=== PATIENT | female | born 1970 | race Asian ===

== ENCOUNTER 2016-11-03 21:41 | Emergency (ER) | payer OTHER ==
[2016-11-03 21:58] VITALS: BP 120/78
[2016-11-03] MEDS ORDERED: predniSONE 20 MG Tab PO ONE (22:08)
--- NOTE | 2016-11-03 22:16 | EDM.PDOC ---
ED HPI Skin/Rash - General Chief Complaint: Skin Complaint Stated Complaint: ALLERGIC REACTION Time Seen by Provider: 11/03/16 22:05 Source: Reports: Patient History Limitations: Reports: No limitations - History of Present Illness INITIAL COMMENTS - FREE TEXT/NARRATIVE: Rosalino is in the area for her daughters wedding tomorrow, and has developed an erythematous itchy rash of the face that has spread to the forearms, inner thighs, and behind the knees. They are traveling in a small trailer, reportedly use, and the bedding has been laundered. There are no oral or respiratory sxs, and no digestive sxs. She has tried Claritan and Benedryl without benefit. Her general health is good. Treatment(s) [employer]ER: Reports: Other medication(s) Other Treatment(s) [employer]ER: benadryl clariton - Related Data Allergies Allergy/AdvReac Type Severity Reaction Status Date / Time No Known Allergies Allergy Verified 11/03/16 21:52 Home Meds: Ambulatory Orders Medication Instructions Recorded Confirmed NK [No Known Home Meds] 11/03/16 11/03/16 Past Medical History [employer]GER History: Reports: - Infectious Disease History Infectious Disease History: Reports: Chicken pox, Measles Social & Family History - Tobacco Use Smoking Status *Q: Never Smoker Second Hand Smoke Exposure: No - Caffeine Use Caffeine Use: Reports: Coffee - Recreational Drug Use Recreational Drug Use: No ED ROS GENERAL - Review of Systems Review Of Systems: See Below Constitutional: Reports: no symptoms HEENT: Reports: No symptoms Respiratory: Reports: No Symptoms Cardiovascular: Reports: No symptoms Endocrine: Reports: no symptoms GI/Abdominal: Reports: No symptoms : Reports: no symptoms Musculoskeletal: Reports: no symptoms Skin: Reports: pruritis, rash Neurological: Reports: No Symptoms Psychiatric: Reports: No symptoms Hematologic/Lymphatic: Reports: no symptoms Immunologic: Reports: no symptoms ED EXAM, SKIN/RASH Exam: See Below Exam Limited By: No limitations General Appearance: alert, WD/WN, no apparent distress Eye Exam: bilateral eye: normal fundi, normal inspection Ears: normal external exam Nose: normal inspection, normal mucosa Throat/Mouth: Normal inspection, Normal lips, Normal oropharynx Head: normocephalic, other (facial erythema, no dominique urticaria) Neck: normal inspection Respiratory/Chest: no respiratory distress, lungs clear Cardiovascular: regular rate, rhythm, no murmur GI/Abdominal: normal bowel sounds, soft, non tender, no organomegaly Back Exam: normal inspection Extremities: redness (antecubial fossa without scaling) Neurological: alert, oriented, CN II-XII intact, normal cognition, normal gait, no motor/sensory deficits Psychiatric: normal affect, normal mood Skin: Warm, Dry, Rash (erythematous macular eruption without any central clearing) Course - Vital Signs Text/Narrative:: Following admission to the [facility] ED, I administered Prednisone 40 mg po pending results of CBC: normal for age. Erythema NOS, possibly post infectious or unknown allergic reaction. She will manage sxs with Prednisone and an antihistamine of choice. Last Recorded V/S: Last Vital Signs Temp 36.6 C 11/03/16 21:52 Pulse 87 11/03/16 21:52 Resp 14 11/03/16 21:52 BP 120/78 11/03/16 21:52 Pulse Ox 98 11/03/16 21:52 - Orders/Labs/Meds Labs: Laboratory Tests 11/03/16 Range/Units 22:15 WBC 5.2 (4.5-12.0) X10-3/uL RBC 3.83 (3.23-5.20) x10(6)uL Hgb 11.0 L (11.5-15.5) g/dL Hct 33.8 (30.0-51.3) % MCV 88.2 (80-96) fL MCH 28.8 (27.7-33.6) pg MCHC 32.6 (32.2-35.4) g/dL RDW 13.0 (11.5-15.5) % Plt Count 280 (125-369) X10(3)uL MPV 7.6 (7.4-10.4) fL Neut % (Auto) 64.7 (46-82) % Lymph % (Auto) 23.6 (13-37) % Dixon % (Auto) 8.5 (4-12) % Eos % (Auto) 3 (1.0-5.0) % Baso % (Auto) 1 (0-2) % Neut # (Auto) 3.5 (1.6-8.3) # Lymph # (Auto) 1.2 (0.6-5.0) # Dixon # (Auto) 0.4 (0.0-1.3) # Eos # (Auto) 0.1 (0.0-0.8) # Baso # (Auto) 0.0 (0.0-0.2) # Departure - Departure Time of Disposition: 22:35 Disposition: Home, Self-Care 01 Condition: fair Clinical Impression: Erythema of forearm, Erythema of face Forms: ED Department Discharge - Problem List & Annotations (1) Erythema of forearm SNOMED Code(s): 518895841, 294316220 Code(s): L53.9 - ERYTHEMATOUS CONDITION, UNSPECIFIED Status: Acute Annotation/Comment:: Finish out Prednisone 20 mg qd til gone, antihistamine of choice if needed. (2) Erythema of face SNOMED Code(s): 006788062, 041647679 Code(s): L53.9 - ERYTHEMATOUS CONDITION, UNSPECIFIED Status: Acute Annotation/Comment:: Finish out Prednisone 20 mg qd til gone and antihistamine of choice if needed. - Problem List Review Problem List Initiated/Reviewed/Updated: Yes - Assessment/Plan Plan: Follow up with PCP if needed.
== END 2016-11-03 22:34 | disposition home or self-care (01) ==
LOC: FB.ED 21:41
DX: L53.9 Erythematous condition, unspecified (principal)
CPT/HCPCS: 36415; 85025; 99283; A9270-GY